=== PATIENT | male | born 1955 | race Caucasian/White ===

== ENCOUNTER 2017-07-23 12:44 | Emergency (ER) | payer OTHER ==
[2017-07-23] MEDS ORDERED: Sulfameth/Trimethoprim DS 800-160mg TAB ONE (13:03)
== END 2017-07-23 13:20 | disposition home or self-care (01) ==
LOC: BURERS 12:44
DX: H60.91 Unspecified otitis externa, right ear (principal); G89.29 Other chronic pain; M54.9 Dorsalgia, unspecified; K21.9 Gastro-esophageal reflux disease without esophagitis; I10 Essential (primary) hypertension; E78.5 Hyperlipidemia, unspecified; F41.9 Anxiety disorder, unspecified; F32.9 Major depressive disorder, single episode, unspecified; F17.200 Nicotine dependence, unspecified, uncomplicated; Z79.82 Long term (current) use of aspirin; Z79.891 Long term (current) use of opiate analgesic; Z79.1 Long term (current) use of non-steroidal anti-inflammatories (NSAID)
CPT/HCPCS: 99282

== ENCOUNTER 2019-08-15 14:28 | Emergency (ER) | payer OTHER ==
[2019-08-15] MEDS ORDERED: Sulfameth/Trimethoprim DS 800-160mg TAB ONE (14:59)
[2019-08-15] MEDS ORDERED: Dexamethasone 4 MG TAB ONE (15:00)
== END 2019-08-15 15:10 | disposition home or self-care (01) ==
LOC: BURERS 14:28
DX: L02.31 Cutaneous abscess of buttock (principal); J01.90 Acute sinusitis, unspecified; K21.9 Gastro-esophageal reflux disease without esophagitis; E78.5 Hyperlipidemia, unspecified; I10 Essential (primary) hypertension; E78.00 Pure hypercholesterolemia, unspecified; F41.9 Anxiety disorder, unspecified; F32.9 Major depressive disorder, single episode, unspecified; F17.210 Nicotine dependence, cigarettes, uncomplicated; B19.20 Unspecified viral hepatitis C without hepatic coma; Z79.899 Other long term (current) drug therapy
CPT/HCPCS: 99283; J8540